=== PATIENT | female | born 1990 | race Caucasian/White ===

== ENCOUNTER 2018-08-26 11:42 | Outpatient (CLI) | payer OTHER ==
[2018-08-26 12:37] LABS: Bacteria,Urine 2+ /HPF (Negative); Bilirubin,Urine NEG (Negative); Blood,Urine NEG (Negative); Color,Urine Yellow (Yellow); Mucus,Urine FEW /HPF; Protein,Urine <15 mg/dL mg/dL (Negative); Urobilinogen,Urine < 2.0 mg/dL (<2.0)
[2018-08-26 13:34] LABS: Hematocrit 40.2 % (30.3-42.9); Hemoglobin 13.7 gm/dl (10.1-14.3); Mean Corpuscular HGB Conc 34 % (30-34); Mean Corpuscular Hemoglobin 30 pg (28-32); Mean Corpuscular Volume 89 fl (79-97); Platelet Count 204 K/mm3 (140-440); Red Blood Count 4.51 M/mm3 (3.65-5.03); Red Cell Distribution Width 14.8 % (13.2-15.2)
[2018-08-26 14:07] LABS: Alanine Aminotransferase 12 units/L (7-56); Uric Acid 4.2 mg/dL (3.5-7.6)
[2018-08-26 14:12] LABS: Creatinine,Urine 66.1 mg/dL (0.1-20.0)
[2018-08-26 15:35] VITALS: BP 122/78
== END 2018-08-26 15:50 | disposition home or self-care (01) ==
LOC: TRG 11:42
PROVIDERS: ATTEND Obstetrics & Gynecology
DX: O47.03 False labor before 37 completed weeks of gestation, third trimester (principal); Z3A.36 36 weeks gestation of pregnancy; Z88.0 Allergy status to penicillin
CPT/HCPCS: 36415; 81001; 82565; 82570; 82575; 83615; 84156; 84450; 84460; 84550; 85027; 86592; 87806